=== PATIENT | male | born 1990 | race Caucasian/White ===

== ENCOUNTER 2017-05-20 08:50 | Emergency (ER) | payer OTHER ==
[2017-05-20 09:00] VITALS: RESP 16; TEMP 98.3
[2017-05-20] MEDS ORDERED: Naproxen 550 mg Tab PO STA (09:16)
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
[2017-05-20] MEDS ORDERED: Naproxen 550 mg Tab PO ONE (09:23)
--- NOTE | 2017-05-20 10:16 | RAD ---
PROCEDURE: Right Hand Radiographs. HISTORY: trauma COMPARISON: None. FINDINGS: BONES: Slightly displaced comminuted fracture at the proximal portion of the 4th metacarpal bone. The fracture may extending to the articular surface of the carpal/metacarpal joint. JOINTS: Normal. No osteoarthritic changes. SOFT TISSUES: Normal. OTHER FINDINGS: None. IMPRESSION: Acute comminuted and slightly displaced fracture at the proximal portion of the 4th metacarpal bone.
[2017-05-20 10:24] VITALS: BP 132/85; PULSE 78; O2SAT 98
== END 2017-05-20 10:23 | disposition home or self-care (01) ==
LOC: C.ER 08:50
DX: S62.304A Unspecified fracture of fourth metacarpal bone, right hand, initial encounter for closed fracture (principal); W01.0XXA Fall on same level from slipping, tripping and stumbling without subsequent striking against object, initial encounter; Y92.410 Unspecified street and highway as the place of occurrence of the external cause